=== PATIENT | female | born 2000 | race Caucasian/White ===

== ENCOUNTER 2019-08-05 11:53 | Inpatient (IN) | payer OTHER ==
[2019-08-05] MEDS ORDERED: Misoprostol 200 MCG TAB PR PRN (12:42)
[2019-08-05] MEDS ORDERED: Diphenoxylate HCl/Atropine Tablet PO PRN (12:42)
[2019-08-05] MEDS ORDERED: Ondansetron PF 4 MG/2 ML Vial IVP PRN ×2 (12:42→19:13)
[2019-08-05] MEDS ORDERED: hydrALAZINE 20 MG/ML VIAL SLOW IVP PRN ×2 (12:42→23:08)
[2019-08-05] MEDS ORDERED: Acetaminophen 500 MG TAB PO PRN (12:42)
[2019-08-05] MEDS ORDERED: HYDROcodone/Acetaminophen 5/325 mg Tablet PO PRN (12:42)
[2019-08-05] MEDS ORDERED: Methylergonovine 0.2 MG/ML VIAL IM PRN (12:42)
[2019-08-05] MEDS ORDERED: Promethazine HCl 25 MG/ML VIAL IM PRN ×2 (12:42→19:13)
[2019-08-05] MEDS ORDERED: Carboprost 250 MCG/ML AMP IM PRN (12:42)
[2019-08-05] MEDS ORDERED: Ibuprofen 800 MG TAB PO PRN (12:42)
[2019-08-05] MEDS ORDERED: Lidocaine 1% (PF) 30 ML VIAL SC PRN (12:42)
--- NOTE | 2019-08-05 12:50 | PDOC.LDHP ---
Labor and Delivery H&P Chief complaint: scheduled induction HPI: 19yo @ 40w2d by 19 week sono who presents for IOL due to oligohydramnios. Otherwise antepartum course benign. Current gestational age (weeks): 40 Due date: 08/03/19 Dating criteria: second trimester ultrasound Grav: 3 Para: 1 OB History Details: 1 term Current complications: oligohydramnios Abnormal US findings: No Past Medical History: Denies Current medications: pre-saima vitamins, other (ASA due to h/o preE with last ) Previous surgical history: none Allergies/Adverse Reactions: Allergies Allergy/AdvReac Type Severity Reaction Status Date / Time No Known Allergies Allergy Verified 05/11/16 10:45 Social history: none - Physical Exam Vital signs reviewed and normal: yes General: NAD Heart: RRR Lungs: nonlabored breathing Abdomen: gravid Extremeties: no edema FHT: category 1 (140s, mod ana, +accels, no decels at this time - limited strip thus far) [place] contractions every: irritability, no pattern - Vaginal Exam cm dilated: 3 (cephalic ) Effacement: 50% Station: -2 - OB Labs Blood type: O RH: negative Antibody Screen: negative HIV: negative RPR: negative HEPSAg: negative 1 hour GCT: negative GBS: negative Urine drug screen: negative Rubella: non-immune - Assessment @ 40w2d IOL for oligohydramnios Rh neg - Plan Plan: admit to L&D, informed consent obtained, anesthesia consult for pain management -: Start pitocin for IOL Rhogam PP
[2019-08-05] MEDS: Lactated Ringer's 1,000 ML IV SCH ×3 (14:00→19:30)
[2019-08-05] MEDS: NS w/ Oxytocin 10 units 500 ML IV SCH (14:15)
[2019-08-05 14:29] LABS: Hemoglobin 12.9 g/dL (12.0-16.0); Mean Corpuscular HGB CONC 33.9 g/dL (32.0-36.0); Mean Corpuscular Hemoglobin 32.1 pg (27.0-31.0); Mean Corpuscular Volume 94.6 fL (78.0-98.0); Mean Platelet Volume 10.2 fL (7.4-10.4); Platelet Count 148 thou/uL (130-400); RBC Distribution Width 12.2 % (11.5-14.5); Red Blood Cell (RBC) Count 4.03 mill/uL (4.20-5.40)
[2019-08-05 14:35] VITALS: BMI 24.9
[2019-08-05 15:07] LABS: HIV (1/2) Antibody/Antigen Non-Reactive (NonReactive); HIV 1/2 INDEX 0.12 S/CO (<1.00); Hep B Surf Ag Non-Reactive S/CO (NonReactive); Syphilis Antibody Nonreactive (Nonreactive); Syphilis Antibody Index 0.07 S/CO (<1.00 Non-Reactive)
[2019-08-05] MEDS ORDERED: Bupivacaine 0.25% 10 ML VIAL ONE (16:13)
[2019-08-05] MEDS: Butorphanol Tartrate 1 MG/ML VIAL SLOW IVP PRN ×2 (17:00→18:23)
--- NOTE | 2019-08-05 17:18 | PDOC.LDPN ---
Labor & Delivery Progress Note - Subjective Subjective: painful contractions - Objective Vital signs reviewed and normal: yes General: NAD Uterine fundus: non tender Dilation: 4 Effacement: 75% Station: -1 FHT: category 2 (140s, mod ana, + accels, varaiable decels with ctx that resolve ) [place] contractions every: q2 min FSE placed: yes Resuscitative measures: maternal position change - Assessment (1) 40 weeks gestation of Code(s): Z3A.40 - 40 WEEKS GESTATION OF Current Visit: Yes Status : Acute (2) Oligohydramnios Code(s): O41.00X0 - OLIGOHYDRAMNIOS, UNSP TRIMESTER, NOT APPLICABLE OR UNSP Current Visit: Yes Status: Acute -: FSE placed, unable to place IUPC likely due to severe oligo. Monitor FHTs, variables have resolved, if persistent variables occur will attempt IUPC again and amnioinfusion.
[2019-08-05] MEDS ORDERED: Fentanyl 4 mcg/Bup 0.1% Cadd 100 ML ONE (17:34)
[2019-08-05] MEDS ORDERED: Naloxone HCl 0.4 mg/ml Vial IVP PRN ×2 (19:13)
[2019-08-05] MEDS ORDERED: Lactated Ringer's 500 ML IV PRN (19:13)
[2019-08-05] MEDS ORDERED: diphenhydrAMINE 50 MG/ML VIAL IVP PRN (19:13)
[2019-08-05] MEDS ORDERED: EPHEDRINE 25 MG/5 ML SYRINGE SLOW IVP PRN (19:13)
[2019-08-05] MEDS ORDERED: Acetaminophen 325 MG TAB PO PRN (19:13)
[2019-08-05] MEDS ORDERED: Communication Order-Pharmacy FS SCH (19:15)
[2019-08-05] MEDS ORDERED: Fentanyl 4 mcg/Bupivacaine 0.1% Cassette 100 ML EPIDURAL SCH (19:15)
[2019-08-05] MEDS ORDERED: Lidocaine 1% (PF) 30 ML VIAL ONE (20:32)
[2019-08-05] MEDS ORDERED: NS / Oxytocin 40 units/1000ml 1,000 ML ONE (20:32)
[2019-08-05] MEDS: NS / Oxytocin 40 units/1000ml 1,000 ML IV PRN ×2 (20:35→21:46)
[2019-08-05 20:57] LABS: Actual Bicarbonate (HCO3a) 21.5 mEq/L (22-28); Base Excess (BEa) -4.3 mEq/L (-2.0 to +3.0)
[2019-08-05 20:59] LABS: Actual Bicarbonate (HCO3v) 23 mEq/L (22-28); Base Excess -3.4 mEq/L (-2.0 to +3.0); pH (Cord, venous) 7.32 (7.32-7.43)
--- NOTE | 2019-08-05 21:09 | PDOC.OPDEL ---
OB Operative/Delivery Note Delivery Dr/Surgeon: Rachel Solis DO Pre-Delivery Diagnosis: medically indicated induction (Due to oligohydramnios) Weeks gestation: 40 Anesthesia: epidural - Findings A Sex: male - 1 min: 2 - 5 min: 4 (10 min : 7 ) - Additional Findings/Plan Placenta delivered: spontaneous Repaired Obstetrical Laceration: other (smal hymenal ring laceration repaired) Estimated blood loss: QBL 100 cc Compilations/Other Findings: Variable decels noted at last portion of labor after rapid progression. Dr. Robertson at bedside when I arrived with FHTs in 110s-120s with recovery in left lateral position. Mother pushed with 2 ctx and in cephalic presentation initially placed on mother with good tone, cord clamped and cut and infant transferred to warmer with nursery team as no cry noted immediately after delivery. NICU team called to the room. Normal appearing placenta noted. 3V cord.
[2019-08-05] MEDS ORDERED: Preparation H Ointment 28 GM TUBE PR PRN (23:08)
[2019-08-05] MEDS ORDERED: NS / Oxytocin 40 units/1000ml 1,000 ML IV SCH (23:08)
[2019-08-05] MEDS ORDERED: Benzocaine-Menthol 82.5 ML CAN TOP PRN (23:08)
[2019-08-05] MEDS ORDERED: Lanolin Ointment 7 GM TUBE TOP PRN (23:08)
[2019-08-05] MEDS ORDERED: Milk Of Magnesia 30 ML UDCUP PO PRN (23:08)
[2019-08-05] MEDS ORDERED: Bisacodyl 10 MG SUPP PR PRN (23:08)
[2019-08-05] MEDS ORDERED: diphenhydrAMINE 25 MG CAP PO PRN (23:08)
[2019-08-06] MEDS: HYDROcodone/Acetaminophen 5/325 mg Tablet PO PRN ×4 (01:17→21:59)
[2019-08-06] MEDS: NS w/ Oxytocin 10 units 500 ML IV SCH (02:31)
[2019-08-06] MEDS: Ibuprofen 800 MG TAB PO SCH ×3 (04:47→21:55)
[2019-08-06 06:35] LABS: Hemoglobin 11.3 g/dL (12.0-16.0); Mean Corpuscular HGB CONC 34.1 g/dL (32.0-36.0); Mean Corpuscular Hemoglobin 32.9 pg (27.0-31.0); Mean Corpuscular Volume 96.4 fL (78.0-98.0); Mean Platelet Volume 10.1 fL (7.4-10.4); Platelet Count 121 thou/uL (130-400); RBC Distribution Width 11.9 % (11.5-14.5); Red Blood Cell (RBC) Count 3.44 mill/uL (4.20-5.40); White Blood Cell (WBC) Count 10.6 thou/uL (4.8-10.8)
--- NOTE | 2019-08-06 08:14 | PDOC.PP ---
Post Progress Note Post Day #: 1 Subjective: No concerns. Minimal pain and lochia. Breast feeding. PO intake tolerated: yes Flatus: yes Ambulation: yes Vital Signs (12 hours) Temp Pulse Resp BP Pulse Ox 08/06/19 05:25 97.8 F 76 16 108/67 08/06/19 04:45 98.2 F 87 14 115/69 08/06/19 01:06 91 106/66 08/06/19 00:06 98.2 F 80 16 115/67 98 Weight Weight 145 lb - Physical Examination General: NAD Cardiovascular: RRR Respiratory: non-labored breathing Abdominal: no distention, appropriately TTP Fundus firm & at: below umbilicus Extremities: negative homans (B) Neurological: no gross focal deficits Psychiatric: A&Ox3, normal affect Result Diagrams: 08/06/19 06:15 Additional Labs: Post Labs Blood Type O NEGATIVE 08/05/19 14:11 Hep Bs Antigen Non-Reactive S/CO (NonReactive) 08/05/19 14:11 (1) 40 weeks gestation of Code(s): Z3A.40 - 40 WEEKS GESTATION OF Status: Resolved (2) Oligohydramnios Code(s): O41.00X0 - OLIGOHYDRAMNIOS, UNSP TRIMESTER, NOT APPLICABLE OR UNSP Status: Resolved (3) Vaginal delivery Code(s): O80 - ENCOUNTER FOR FULL-TERM UNCOMPLICATED DELIVERY Status: Acute - Assessment/Plan PPD1 VSSAF Continue PP care, plan for d/c 1-2 days pending
[2019-08-06] MEDS: Prenatal Vitamin 1 TAB PO SCH (08:52)
[2019-08-06] MEDS: Ferrous Sulfate 325 MG TAB PO SCH ×2 (08:52→18:19)
[2019-08-06] MEDS: Docusate Calcium (SURFAK) 240 MG CAP PO SCH ×2 (08:52→21:55)
[2019-08-06] MEDS ORDERED: Measles/Mumps/Rubella 10 MCG/0.5 ML VIAL SC ONE (09:00)
[2019-08-06] MEDS ORDERED: FLU VACC QS2019-20(6MOS UP)/PF 60 MCG/0.5 ML SYRINGE IM ONE (09:00)
[2019-08-07] MEDS: Ibuprofen 800 MG TAB PO SCH ×2 (06:41→14:00)
--- NOTE | 2019-08-07 07:31 | PDOC.PP ---
Post Progress Note Post Day #: 2 Subjective: No concerns. Minimal pain and lochia. Breast feeding. PO intake tolerated: yes Flatus: yes Ambulation: yes Vital Signs (12 hours) Temp Pulse Resp BP Pulse Ox 08/06/19 19:48 98.6 F 98 12 111/70 98 Weight Weight 145 lb - Physical Examination General: NAD Cardiovascular: RRR Respiratory: non-labored breathing Abdominal: no distention, appropriately TTP Fundus firm & at: below umbilicus Extremities: negative homans (B) Neurological: no gross focal deficits Psychiatric: A&Ox3, normal affect Result Diagrams: 08/06/19 06:15 Additional Labs: Post Labs Blood Type O NEGATIVE 08/05/19 14:11 Hep Bs Antigen Non-Reactive S/CO (NonReactive) 08/05/19 14:11 (1) 40 weeks gestation of Code(s): Z3A.40 - 40 WEEKS GESTATION OF Status: Resolved (2) Oligohydramnios Code(s): O41.00X0 - OLIGOHYDRAMNIOS, UNSP TRIMESTER, NOT APPLICABLE OR UNSP Status: Resolved (3) Vaginal delivery Code(s): O80 - ENCOUNTER FOR FULL-TERM UNCOMPLICATED DELIVERY Status: Acute - Assessment/Plan PPD2 VSSAF D/C home vs BB today if infant requires continued observation
[2019-08-07 08:33] VITALS: BP 105/56; TEMP 98.5
[2019-08-07] MEDS: Prenatal Vitamin 1 TAB PO SCH (08:45)
[2019-08-07] MEDS: Docusate Calcium (SURFAK) 240 MG CAP PO SCH (08:45)
[2019-08-07] MEDS: Ferrous Sulfate 325 MG TAB PO SCH (08:45)
== END 2019-08-07 16:00 | disposition home or self-care (01) | DRG 807 ==
LOC: L&D 11:53 → 3SW 08-06
PROVIDERS: ADMIT Obstetrics & Gynecology; ATTEND Obstetrics & Gynecology
PROC: 10E0XZZ Delivery of Products of Conception, External Approach (ICD-10-PCS; principal; 2019-08-05)
PROC: 3E033VJ Introduction of Other Hormone into Peripheral Vein, Percutaneous Approach (ICD-10-PCS; 2019-08-05)
PROC: 0UQKXZZ Repair Hymen, External Approach (ICD-10-PCS; 2019-08-05)
DX: O41.03X0 Oligohydramnios, third trimester, not applicable or unspecified (principal); Z37.0 Single live birth; O26.893 Other specified pregnancy related conditions, third trimester; O76 Abnormality in fetal heart rate and rhythm complicating labor and delivery; O70.0 First degree perineal laceration during delivery; Z3A.40 40 weeks gestation of pregnancy; Z67.91 Unspecified blood type, Rh negative
CPT/HCPCS: 36415; 82805; 85027; 85461; 86780; 86850; 86870; 86900; 86901; 87340; 87389; 90384; 96372; J0595; J2001; J2590; S0020